=== PATIENT | male | born 1945 | race Caucasian/White ===

== ENCOUNTER 2017-02-07 07:15 | Observation (INO) | payer OTHER, MEDICARE ==
--- NOTE | 2017-02-07 06:08 | PDHPUP ---
History & Physical Update H&P update statement: This history and physical update is based on an assessment of the patient which was completed after admission or registration (within 24 hours), but prior to the surgery/procedure. H&P update: H&P reviewed & patient examined, no change in patient's condition since H&P completed
[2017-02-07] MEDS ORDERED: ceFAZolin 2 GM/DEXTROSE 100 ML IV ONE (07:40)
[2017-02-07] MEDS ORDERED: DEXAMETHASONE 10 MG/ML VIAL IVP ONE (07:40)
[2017-02-07] MEDS ORDERED: morphINE SR 15 MG TAB PO ONE (07:40)
[2017-02-07] MEDS ORDERED: GABAPENTIN 300 MG CAP PO ONE (07:40)
[2017-02-07] MEDS ORDERED: ACETAMINOPHEN 500 MG TAB PO ONE (07:40)
[2017-02-07] MEDS ORDERED: LIDOCAINE 1% 2 ML INJ ID PRN (07:58)
[2017-02-07] MEDS ORDERED: LR 1,000 ML IV ONE (07:58)
[2017-02-07] MEDS ORDERED: THROMBIN (BOVINE) 20,000 UNIT VIAL TP ONE (08:28)
[2017-02-07] MEDS ORDERED: BACITRACIN 50,000 UNITS/10 ML SYR IRR ONE (08:28)
[2017-02-07] MEDS ORDERED: BUPIVACAINE/EPI 0.25% 30 ML SDV ONE ×2 (08:28→13:00)
[2017-02-07] MEDS ORDERED: MIDAZOLAM 2 MG/2 ML VIAL IVP ONE (09:16)
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
[2017-02-07] MEDS ORDERED: PROPOFOL 200 MG/20 ML VIAL ONE (09:23)
[2017-02-07] MEDS ORDERED: fentaNYL 100 MCG/2 ML INJ ONE (09:23)
[2017-02-07] MEDS ORDERED: PROPOFOL/EMULSION 500 MG/50 ML BOTTLE IV ONE ×2 (09:23→11:45)
[2017-02-07] MEDS ORDERED: REMIFENTANIL HCL 1 MG VIAL ONE ×3 (09:23)
[2017-02-07] MEDS ORDERED: ATROPINE SULFATE 1 MG/ML VIAL ONE (10:49)
[2017-02-07] MEDS ORDERED: epHEDrine SULFATE 10 MG/ML SYR ONE (11:04)
[2017-02-07] MEDS ORDERED: PHENYLEPHRINE HCL 100 MCG/ML SYR ONE (11:04)
[2017-02-07] MEDS ORDERED: PHENYLEPHRINE 10 MG/ML SDV ONE (11:20)
[2017-02-07] MEDS ORDERED: ONDANSETRON 4 MG/2 ML VIAL IVP PRN ×2 (11:39→13:25)
[2017-02-07] MEDS ORDERED: fentaNYL 100 MCG/2 ML INJ IVP PRN (11:39)
[2017-02-07] MEDS ORDERED: LR 500 ML IV PRN (11:39)
[2017-02-07] MEDS ORDERED: NALOXONE HCL 0.4 MG/ML INJ IVP PRN (11:39)
[2017-02-07] MEDS ORDERED: HYDROmorphONE/DILAUDID 1 MG/ML SYR IVP PRN (11:39)
[2017-02-07] MEDS ORDERED: HYDROmorphONE/DILAUDID 2 MG/ML INJ ONE (11:41)
[2017-02-07] MEDS ORDERED: SUGAMMADEX SODIUM 200 MG/2 ML VIAL IVP ONE (12:58)
[2017-02-07] MEDS ORDERED: BUPIVACAINE 0.25% 30 ML SDV ONE (13:02)
[2017-02-07] MEDS ORDERED: ALPRAZolam 0.5 MG TAB PO PRN (13:23)
[2017-02-07] MEDS ORDERED: BISACODYL 10 MG SUPP PR PRN (13:25)
[2017-02-07] MEDS ORDERED: MAGNESIUM HYDROXIDE 30 ML UDCUP PO PRN (13:25)
[2017-02-07] MEDS ORDERED: ONDANSETRON DISINTEGRATING 4 MG TAB PO PRN (13:25)
[2017-02-07] MEDS ORDERED: diphenhydrAMINE 25 MG CAP PO PRN (13:25)
[2017-02-07] MEDS ORDERED: METHOCARBAMOL 750 MG TAB PO PRN (13:25)
[2017-02-07] MEDS ORDERED: oxyCODONE IR 5 MG TAB PO PRN (13:25)
[2017-02-07] MEDS ORDERED: LACTULOSE 20 GM/30 ML UDCUP PO PRN (13:25)
[2017-02-07] MEDS ORDERED: NS 1,000 ML IV SCH (13:30)
--- NOTE | 2017-02-07 13:30 | SOAPPROG ---
SOAP Progress Note Assessment/Plan: Assessment: 71 yo M sp L2-S1 microdecompression Plan: stable to 3N PT/OT GEENA to thumbprint suction only loveonx starts POD #1 please call with neuro changes 02/07/17 13:29 Subjective: + back pain, no leg pain Objective: Vital Signs Temp Pulse Resp BP Pulse Ox 36.8 C 66 15 144/89 H 93 02/07/17 09:44 02/07/17 09:44 02/07/17 09:44 02/07/17 09:44 02/07/17 09:44 somnolent PERRL, EOMI BETZAIDA x 4 + light touch ICD10 Worksheet Patient Problems: Problems Problem Status Onset Lumbar stenosis Acute - ICD10 Problem Qualifiers (1) Lumbar stenosis
--- NOTE | 2017-02-07 13:40 | POSTANESTH ---
Post Anesthetic Evaluation Cardiovascular Status: Normal, Stable Respiratory Status: Normal, Stable Level of Consciousness/Mental Status: Mildly Sleepy, Arousable Pain Control: Adequate, Prn Tx Ordered Nausea/Vomiting Control: Adequate, Prn Tx Ordered Complications Possibly Related to Anesthesia: None Noted
[2017-02-07] MEDS: ACETAMINOPHEN 500 MG TAB PO SCH ×2 (15:06→15:35)
[2017-02-07] MEDS: POLYETHYLENE GLYCOL 3350 17 GM PKT PO SCH ×2 (15:36→22:22)
[2017-02-07] MEDS ORDERED: HYDROCODONE/APAP 10/325 TAB PO PRN (16:03)
--- NOTE | 2017-02-07 17:31 | GOP ---
[f rep st] OPERATIVE REPORT DATE OF OPERATION: 02/07/2017 SURGEON: Stevo Jeong MD CONSTRUCTION AND MAINTENANCE INSPECTOR: MIHAI Layton. ANESTHESIA: General endotracheal. PREOPERATIVE DIAGNOSIS: Severe multilevel lumbar stenosis. Intractable neurogenic claudication. Int ractable left greater than right lower extremity radiculopathy. Failed conservative care. Morbid obe sity. POSTOPERATIVE DIAGNOSIS: Severe multilevel lumbar stenosis. Intractable neurogenic claudication. In tractable left greater than right lower extremity radiculopathy. Failed conservative care. Morbid ob esity. PROCEDURE PERFORMED: Left-sided L2-3, L3-4, L4-5, and L5-S1 posterior hemilaminectomy, medial facet ectomy, foraminotomy, and decompression of the central canal and bilateral lateral recess. Left L5-S 1 disc removal. Use of intraoperative microscopy and fluoroscopy. FINDINGS: ESTIMATED BLOOD LOSS: 100 cc. INDICATIONS: The patient is a very pleasant 71-year-old obese gentleman with severe intractable, le ft greater than right lower extremity radicular symptoms and neurogenic claudication secondary to se rafael multilevel lumbar spondylosis and stenosis with critical spinal stenosis. He presents now for a multilevel surgical decompression. DESCRIPTION OF PROCEDURE: After informed consent was obtained, the patient was taken to the operati ng room and placed in the prone position on the Konstantin frame. The lumbosacral area was prepped and d raped in a sterile fashion. After fluoroscopic localization of the correct levels, the subcutaneous and intramuscular tissues were infiltrated with local anesthesia. A midline linear incision was then created from approximately L2 to S1. This was carried down to the fascial layer, which was incised using monopolar electrocautery and carried in a subperiosteal plan e along the spinous processes and out the lamina on the left. Intraoperative fluoroscopy was utilize d to verify the correct levels. Following this, posterior hemilaminectomy defects were created at ea ch of the 4 levels (L2-3, L3-4, L4-5, and L5-S1) with decompression of the central canal and lateral recess extensively. At all levels, a slight medial facetectomy was required in order to adequately decompress the lateral recess and neural foramen. Foraminotomies were performed at each level. The m icroscope was angled across the midline and right-sided decompressions were performed as best as I c ould, as well. Following adequate decompression, the wound was copiously irrigated with antibiotic i rrigation and meticulous hemostasis was achieved. The dura was very thin at the L5-S1 level, and a s mall piece of DuraGen was placed in order to hopefully prevent a CSF leak postoperatively. A drain w as placed and put to only thumbprint suction. The wound was closed in a layered fashion after re-infiltration of the subcutaneous and intramuscula r tissues with local anesthesia. The wound was closed in a layered fashion using interrupted Vicryl sutures followed by Steri-Strips on the skin. COMPLICATIONS: None. DISPOSITION: The patient was extubated and transferred to the recovery room in stable condition. /[id number]/MODL
[2017-02-07] MEDS: metFORMIN HCL 500 MG TAB PO SCH (17:41)
[2017-02-07] MEDS: ceFAZolin 2 GM/DEXTROSE 100 ML IV SCH (17:42)
[2017-02-07] MEDS: VALSARTAN 160 MG TAB PO SCH (20:05)
[2017-02-07] MEDS: SENNOSIDES/DOCUSATE SODIUM TAB PO SCH (20:07)
[2017-02-07] MEDS: EPLERENONE 25 MG TAB PO SCH (20:07)
[2017-02-07] MEDS: FAMOTIDINE 20 MG TAB PO SCH (20:07)
[2017-02-08] MEDS: ceFAZolin 2 GM/DEXTROSE 100 ML IV SCH (01:21)
[2017-02-08 04:34] VITALS: TEMP 97.8
[2017-02-08] MEDS: SENNOSIDES/DOCUSATE SODIUM TAB PO SCH (08:07)
[2017-02-08] MEDS: FAMOTIDINE 20 MG TAB PO SCH (08:07)
[2017-02-08] MEDS: POLYETHYLENE GLYCOL 3350 17 GM PKT PO SCH (08:07)
[2017-02-08] MEDS: metFORMIN HCL 500 MG TAB PO SCH (08:11)
[2017-02-08] MEDS: EPLERENONE 25 MG TAB PO SCH (08:14)
[2017-02-08] MEDS: VALSARTAN 160 MG TAB PO SCH (08:15)
--- NOTE | 2017-02-08 08:33 | NEUSURGPN ---
Assessment/Plan: Assessment: 71 yo M sp L2-S1 microdecompression - POD#1 Plan: PT/OT Pain management GEENA to thumbprint suction only - had 150 out overnight, d/w Dr Means needs to leave in place TEDS, SCDS, Lovenox starts POD #1 please call with neuro changes D/w Dr Means Dispo - possible DC later today pending clinical course Subjective: Pt resting in bed, states he has no pain. Objective: AAOx3 NAD VSS MAEx4 Motor 5/5 BLE Incision dressed cdi +LT GEENA in place Urinary Catheter in Place: No Catheter Insertion Date: 02/07/17 - Physician Discussed Patient with : [facility] Physical Exam - Vitals, I&O, Labs I and O 02/07/17 02/08/17 02/09/17 05:59 05:59 05:59 Intake Total 4030 Output Total 810 Balance 3220 Weight 113.398 kg Intake: Oral (ml) 680 IV Intake (ml) 3250 IV Infused (ml) 100 ceFAZolin 2 GM/DEXTROSE 100 100 ml @ 200 mls/hr IV Q8H [facility] Rx#:[id number] Output: Urine (ml) 510 Catheter 510 Estimated Blood Loss (ml) 150 GEENA Drain Output (ml) 150 #1 Left Back 150 Other: Intake Quantity Yes Sufficient Vital Signs Temp Pulse Resp BP Pulse Ox 36.6 C 58 L 16 102/69 96 02/08/17 04:00 02/08/17 04:00 02/08/17 04:00 02/08/17 04:00 02/08/17 04:00 ICD10 Worksheet Patient Problems: Problems Problem Status Onset Lumbar stenosis Acute
[2017-02-08] MEDS ORDERED: ALLOPURINOL 300 MG TAB PO SCH (09:00)
[2017-02-08] MEDS ORDERED: PANTOPRAZOLE SODIUM 40 MG TAB PO SCH (09:00)
[2017-02-08] MEDS ORDERED: ENOXAPARIN 40 MG/0.4 ML SYR SC SCH (09:00)
[2017-02-08] MEDS ORDERED: FUROSEMIDE 40 MG TAB PO SCH (09:00)
[2017-02-08] MEDS ORDERED: ATORVASTATIN CALCIUM 20 MG TAB PO SCH (09:00)
[2017-02-08 11:45] VITALS: BP 105/61
[2017-02-08 12:13] VITALS: PULSE 54; RESP 18; O2SAT 92
== END 2017-02-08 16:23 | disposition home or self-care (01) ==
LOC: F3N 07:33 → INTOOBSV 07:33 → F3N 15:16
PROVIDERS: ADMIT Neurological Surgery; ATTEND Neurological Surgery
PROC: 00NY0ZZ Release Lumbar Spinal Cord, Open Approach (ICD-10-PCS; principal; 2017-02-07 09:30)
PROC: 0ST40ZZ Resection of Lumbosacral Disc, Open Approach (ICD-10-PCS; principal; 2017-02-07 09:30)
PROC: 01NB0ZZ Release Lumbar Nerve, Open Approach (ICD-10-PCS; principal; 2017-02-07 09:30)
DX: M51.16 Intervertebral disc disorders with radiculopathy, lumbar region (principal); M51.17 Intervertebral disc disorders with radiculopathy, lumbosacral region; E66.01 Morbid (severe) obesity due to excess calories; Z68.35 Body mass index [BMI] 35.0-35.9, adult; I10 Essential (primary) hypertension; M51.36 Other intervertebral disc degeneration, lumbar region
CPT/HCPCS: 63030; 63035; 76001; 97161; 97165; G8978; G8979; G8980; G8987; G8988; G8989; J0461; J0690; J1100; J1170; J1650; J2250; J2370; J2704; J3010

== ENCOUNTER 2018-12-23 08:29 | Inpatient (IN) | payer OTHER, MEDICARE | END 2018-12-26 16:30 | disposition home or self-care (01) | LOC: F3N 08:29 ==